=== PATIENT | female | born 1980 | race Caucasian/White ===

== ENCOUNTER 2018-05-22 19:40 | Emergency (ER) | payer OTHER | END 2018-05-22 21:32 | disposition home or self-care (01) | LOC: FTE 19:40 | DX: S61.210A Laceration without foreign body of right index finger without damage to nail, initial encounter (principal); W26.8XXA Contact with other sharp object(s), not elsewhere classified, initial encounter; Y92.9 Unspecified place or not applicable | CPT/HCPCS: 29130; 99282-25 ==